=== PATIENT | male | born 1985 | race African-American/Black ===

== ENCOUNTER 2018-07-27 13:35 | Emergency (ER) | payer OTHER, SELFPAY ==
[2018-07-27] MEDS ORDERED: Ibuprofen 600 MG TAB ONE (14:40)
--- NOTE | 2018-07-27 14:40 | RAD ---
CHEST 2 VIEWS: Date: 07/27/18 HISTORY: Chest pain and cough. COMPARISON: None. FINDINGS: There is low grade dextroscoliosis of the lower thoracic spine. No acute focal air space consolidatio n, pneumothorax, or effusion. No acute osseous abnormality. IMPRESSION: No acute intrathoracic abnormality. POS: [facility]
== END 2018-07-27 15:25 | disposition home or self-care (01) ==
LOC: SCSER 13:35
DX: B34.9 Viral infection, unspecified (principal)
CPT/HCPCS: 71046; 87804

== ENCOUNTER 2018-10-09 10:19 | Emergency (ER) | payer SELFPAY | END 2018-10-09 11:18 | disposition home or self-care (01) | LOC: SCSER 10:19 | DX: J10.1 Influenza due to other identified influenza virus with other respiratory manifestations (principal) | CPT/HCPCS: 87804; 99283 ==

== ENCOUNTER 2018-10-24 10:46 | Emergency (ER) | payer SELFPAY ==
[2018-10-24] MEDS ORDERED: Diazepam 5 MG TAB ONE (11:05)
[2018-10-24] MEDS ORDERED: Dexamethasone 10 MG/ML VIAL ONE (11:06)
[2018-10-24] MEDS ORDERED: Morphine 4 MG/ML VIAL ONE (11:06)
[2018-10-24] MEDS ORDERED: Ketorolac Tromethamine 60 MG/2 ML VIAL ONE (11:06)
== END 2018-10-24 11:29 | disposition home or self-care (01) ==
LOC: SCSER 10:46
DX: M54.6 Pain in thoracic spine (principal)
CPT/HCPCS: 96372; J1100; J1885; J2270

== ENCOUNTER 2019-01-02 08:29 | Emergency (ER) | payer SELFPAY | END 2019-01-02 09:02 | disposition home or self-care (01) | LOC: SCSER 08:29 | DX: M54.12 Radiculopathy, cervical region (principal) | CPT/HCPCS: 99281 ==